=== PATIENT | female | born 1950 | race Caucasian/White ===

== ENCOUNTER → 2016-09-27 | Outpatient (CLI) | payer MEDICARE ==
[~2016-09-27] MED LIST: ACIPHEX20 MG PO; ANTIVERT25 MG PO; Aciphex20 MG PO; CALCIUM500 MG PO; COUMADIN5 M2 PO; EVISTA60 MG PO; IBU-8800 MG PO; JANUMET 500 MG-1 TA1 PO; LISINOPRIL20 MG PO; LOVENOX80 MG/0.8 SC; MACROBID100 M1 PO; PREDNICOT20 MG PO; PYRIDIUM200 MG PO; SIMVASTATIN20 MG PO; SYNTHROID0.1 MG PO; VALTREX1 GM PO; VALTREX500 MG PO; VICODIN 5/500 505 MG PO; ZYRTEC10 MG PO
== END | disposition home or self-care (01) ==
LOC: US 08:20
DX: K76.0 Fatty (change of) liver, not elsewhere classified (principal); R94.5 Abnormal results of liver function studies; N28.89 Other specified disorders of kidney and ureter

== ENCOUNTER → 2016-10-07 | Outpatient (CLI) | payer MEDICARE | END | disposition home or self-care (01) | LOC: CT 09:49 | DX: K76.0 Fatty (change of) liver, not elsewhere classified (principal); N28.89 Other specified disorders of kidney and ureter; R94.5 Abnormal results of liver function studies; Q89.09 Congenital malformations of spleen ==

== ENCOUNTER → 2016-12-11 | Outpatient (CLI) | payer MEDICARE | END | disposition home or self-care (01) | LOC: US 07:30 | DX: I12.9 Hypertensive chronic kidney disease with stage 1 through stage 4 chronic kidney disease, or unspecified chronic kidney disease (principal); E11.21 Type 2 diabetes mellitus with diabetic nephropathy; N18.2 Chronic kidney disease, stage 2 (mild); E78.5 Hyperlipidemia, unspecified; N28.0 Ischemia and infarction of kidney ==

== ENCOUNTER → 2016-12-13 | Outpatient (CLI) | payer MEDICARE ==
[2016-12-13 10:39] LABS: BASO # 0.1 10*3/uL (0.0-0.1); BASO % 1.2 % (0.0-1.0); EOS # 0.2 10*3/uL (0.0-0.4); EOS % 2.8 % (1.0-4.0); HEMATOCRIT 44.7 % (37.0-47.0); HEMOGLOBIN 14.5 g/dl (12.0-16.0); LYMPH # 2.5 10*3/uL (1.3-4.4); LYMPH % 29.1 % (27.0-41.0); MEAN CELL VOLUME 85.1 fl (81.0-99.0); MEAN CORPUSCULAR HGB 27.6 pg (27.0-31.0); MEAN CORPUSCULAR HGB CONC 32.4 g/dl (33.0-37.0); MEAN PLATELET VOLUME 9.9 fl (9.6-12.3); MONO # 0.7 10*3/uL (0.1-1.0); MONO % 7.8 % (3.0-9.0); NEUT % 58.9 % (47.0-73.0); PLATELET COUNT AUTOMATED 240 10*3/uL (130-400); RED BLOOD COUNT 5.25 10*6/uL (4.10-5.10); RED CELL DISTRI WIDTH 13.3 % (0-14.5); WHITE BLOOD COUNT 8.4 10*3/uL (4.8-10.8)
[2016-12-13 10:52] LABS: BILIRUBIN NEGATIVE (NEGATIVE); BLOOD 1+ (NEGATIVE); CLARITY CLOUDY (CLEAR); COLOR YELLOW (YELLOW); GLUCOSE NEGATIVE (NEGATIVE); KETONE NEGATIVE (NEGATIVE); LEUKO ESTERASE 3+ (NEGATIVE); NITRITE POSITIVE (NEGATIVE); PH 6.5 (5.0-9.0); PROTEIN TRACE (NEGATIVE)
[2016-12-13 11:00] LABS: BACTERIA 2+; WBC TNTC wbc/hpf (0-5)
[2016-12-13 11:01] LABS: URINE TP/CRE RATIO 0.2 (<0.21)
[2016-12-13 11:10] LABS: ALBUMIN 3.7 gm/dl (3.1-4.5); ALKALINE PHOSPHATASE 51 U/L (45-117); BILIRUBIN, TOTAL 0.5 mg/dl (0.2-1.0); BUN 12 mg/dl (7-24); CARBON DIOXIDE 27 mmol/L (21-32); CHLORIDE 103 mmol/L (98-107); CHOLESTEROL 132 mg/dL (<200); EST GLOM FILT AFRICAN AMERICAN > 60 ml/min; GLUCOSE 122 mg/dL (65-99); HDL CHOLESTEROL 42 mg/dl (40-60); LDL CHOLESTEROL 63 mg/dL (9-159); MAGNESIUM 1.8 mg/dL (1.5-2.1); POTASSIUM 4.2 mmol/L (3.5-5.1); SGOT/AST 24 IU/L (3-35); SGPT/ALT 42 U/L (12-78); SODIUM 139 mmol/L (136-145); TOTAL PROTEIN 7.4 gm/dL (6.4-8.2); TRIGLYCERIDES 133 mg/dl (<150); URIC ACID 5.6 mg/dL (2.6-6.0); VLDL CHOLESTEROL 27 mg/dL (6-40)
[2016-12-13 12:02] LABS: PTH INTACT 27.3 pg/mL (14.0-72.0); VITAMIN D, 25-HYDROXY 34.8 ng/mL (30-100)
[2016-12-14 09:06] LABS: MICRO ALBUMIN/CRE RATIO 24.7 (0.0-30.0)
== END | disposition home or self-care (01) ==
LOC: LAB 02:27
PROVIDERS: Internal Medicine Nephrology
DX: I12.9 Hypertensive chronic kidney disease with stage 1 through stage 4 chronic kidney disease, or unspecified chronic kidney disease (principal); N18.2 Chronic kidney disease, stage 2 (mild); E78.5 Hyperlipidemia, unspecified; E11.21 Type 2 diabetes mellitus with diabetic nephropathy; E11.22 Type 2 diabetes mellitus with diabetic chronic kidney disease; N28.0 Ischemia and infarction of kidney; E55.9 Vitamin D deficiency, unspecified; R00.2 Palpitations

== ENCOUNTER 2017-03-08 19:31 | Inpatient (IN) | payer MEDICARE ==
[~2017-03-08] VITALS: Ht 170.2 cm; Wt 90.4 kg
[~2017-03-08 19:31] MED LIST changes: +SYNTHROID,LEVO88 MCG PO; -SYNTHROID0.1 MG PO
[2017-03-08 19:32] VITALS: BP 76/40
[2017-03-08 19:46] VITALS: BP 105/68
[2017-03-08 19:50] VITALS: BP 125/74
[2017-03-08 19:51] LABS: BASO # 0.1 10*3/uL (0.0-0.1); BASO % 0.6 % (0.0-1.0); EOS # 0.2 10*3/uL (0.0-0.4); EOS % 1.6 % (1.0-4.0); HEMATOCRIT 45.1 % (37.0-47.0); HEMOGLOBIN 14.9 g/dl (12.0-16.0); LYMPH # 4.9 10*3/uL (1.3-4.4); LYMPH % 52.2 % (27.0-41.0); MEAN CELL VOLUME 83.2 fl (81.0-99.0); MEAN CORPUSCULAR HGB 27.5 pg (27.0-31.0); MEAN PLATELET VOLUME 10.1 fl (9.6-12.3); MONO # 0.8 10*3/uL (0.1-1.0); MONO % 8.5 % (3.0-9.0); NEUT # 3.5 10*3/uL (2.3-7.9); PLATELET COUNT AUTOMATED 275 10*3/uL (130-400); RED BLOOD COUNT 5.42 10*6/uL (4.10-5.10); RED CELL DISTRI WIDTH 13.2 % (0-14.5); WHITE BLOOD COUNT 9.5 10*3/uL (4.8-10.8)
[2017-03-08 20:03] LABS: BUN 14 mg/dl (7-24); CHLORIDE 105 mmol/L (98-107); CREATININE 0.91 mg/dL (0.55-1.02); POTASSIUM 3.7 mmol/L (3.5-5.1); SODIUM 139 mmol/L (136-145)
[2017-03-08 22:15] VITALS: BP 121/80
[2017-03-08 22:37] VITALS: BP 127/83
--- NOTE | 2017-03-08 22:37 | NUR ---
A 67, admitted to ICCU, under the services of KATIA Springer DO with a diagnosis of anaphylaxis. Chief complaint is anaphylactic reaction after starting Bactrim. Patient arrived via stretcher from ER. Monitor applied. Initial assessment completed. Vital signs taken and recorded. KATIA SPRINGER DO notified of admission to the unit. Orders received. See assessment for past medical history, medications and allergies. Patient and/or family oriented to unit. [facility] ICCU visitation policy reviewed. Clothing/patient valuable form completed. ALEXEY MALIK
[2017-03-08] MEDS ORDERED: ZESTORETIC 20-1 EACH PO (22:59)
--- NOTE | 2017-03-08 23:00 | NUR ---
DR ROMERO HERE DURING ADMISSION ASSESSMENT AND PERFORMS H&P AND ASSESSMENT. NO ORDERS FOR ABRASIONS SUSTAINED FROM FALL ORDERED AT THIS TIME.
[2017-03-08] MEDS ORDERED: OXYBUTYNIN CHLO10 MG PO (23:01)
[2017-03-08] MEDS ORDERED: COREG3.125 MG PO (23:01)
[2017-03-08] MEDS ORDERED: DIALYVITE V5000 UNIT PO (23:06)
[2017-03-08] MEDS ORDERED: ATORVASTATIN CA10 M1 PO (23:07)
[2017-03-08] MEDS ORDERED: ASPIRIN ADULT L81 M1 PO (23:08)
[2017-03-08] MEDS ORDERED: BIOTIN PO (23:13)
[2017-03-09] VITALS: BP 118/69
--- NOTE | 2017-03-09 00:12 | NUR ---
PATIENT C/O 12/09 HEADACHE. MEDICATED WITH PRN NORCO ORDERED AND PER PATIENT REQUEST.
[2017-03-09 01:02] LABS: BILIRUBIN NEGATIVE (NEGATIVE); BLOOD NEGATIVE (NEGATIVE); CLARITY CLEAR (CLEAR); COLOR YELLOW (YELLOW); GLUCOSE NEGATIVE (NEGATIVE); KETONE NEGATIVE (NEGATIVE); LEUKO ESTERASE TRACE (NEGATIVE); NITRITE NEGATIVE (NEGATIVE); SPECIFIC GRAVITY 1.015 (1.005-1.030); UROBILINOGEN 0.2 E.U./dl (0.2-1.0)
[2017-03-09 01:08] LABS: BACTERIA TRACE; WBC 16-20 wbc/hpf (0-5)
--- NOTE | 2017-03-09 01:10 | NUR ---
PATIENT ASLEEP. NO SIGNS OF PAIN. NORCO EFFECTIVE.
[2017-03-09 04:00] VITALS: BP 122/71
[2017-03-09 04:38] LABS: BASO % 0.3 % (0.0-1.0); HEMATOCRIT 43.4 % (37.0-47.0); HEMOGLOBIN 14.2 g/dl (12.0-16.0); LYMPH # 1.2 10*3/uL (1.3-4.4); LYMPH % 11.7 % (27.0-41.0); MEAN CELL VOLUME 83.8 fl (81.0-99.0); MEAN CORPUSCULAR HGB 27.4 pg (27.0-31.0); MEAN CORPUSCULAR HGB CONC 32.7 g/dl (33.0-37.0); MEAN PLATELET VOLUME 10.7 fl (9.6-12.3); MONO # 0.1 10*3/uL (0.1-1.0); MONO % 0.7 % (3.0-9.0); PLATELET COUNT AUTOMATED 242 10*3/uL (130-400); RED BLOOD COUNT 5.18 10*6/uL (4.10-5.10); RED CELL DISTRI WIDTH 13.2 % (0-14.5); WHITE BLOOD COUNT 10.4 10*3/uL (4.8-10.8)
[2017-03-09 04:50] LABS: ACT PARTIAL THROMBO TIME 22.3 SECONDS (20.8-31.5)
[2017-03-09 05:11] LABS: ALBUMIN 3.3 gm/dl (3.1-4.5); ALKALINE PHOSPHATASE 49 U/L (45-117); BUN 13 mg/dl (7-24); CHLORIDE 104 mmol/L (98-107); CHOLESTEROL 136 mg/dL (<200); CREATININE 0.91 mg/dL (0.55-1.02); MAGNESIUM 1.7 mg/dL (1.5-2.1); PHOSPHOROUS 2.5 mg/dL (2.5-4.9); POTASSIUM 3.9 mmol/L (3.5-5.1); SGOT/AST 24 IU/L (3-35); SGPT/ALT 43 U/L (12-78); SODIUM 138 mmol/L (136-145); TOTAL PROTEIN 6.9 gm/dL (6.4-8.2); TRIGLYCERIDES 40 mg/dl (<150); VLDL CHOLESTEROL 8 mg/dL (6-40)
[2017-03-09 05:17] LABS: HDL CHOLESTEROL 45 mg/dl (40-60); LDL CHOLESTEROL 83 mg/dL (9-159)
[2017-03-09 07:05] LABS: VITAMIN D, 25-HYDROXY 48.4 ng/mL (30-100)
--- NOTE | 2017-03-09 07:53 | NUR ---
Shift chart check completed.24 HR chart check completed.
[2017-03-09 08:00] VITALS: BP 120/70
--- NOTE | 2017-03-09 08:45 | NUR ---
ALEJANDRA WHITE [id number] Please refer to the physician's history and physical for past medical history, comorbid conditions, and allergies. Diagnosis: ANAPHYLAXIS Garfield Score: 22,LOW OR NO RISK WOUND DESCRIPTIONS: Location of the wound: left knee proximal Type of wound: traumatic Thickness: Partial Size: 2.4cm x 2.2cm x 0.1cm Tunneling: none Undermining: none Sinus Tract: none Presence of Exudate: serosanguineous Amount: Light Color: Red Odor: None Periwound Skin Appearance: Normal Wound edges: approximated Pain (associated with wound): none at time of assessment How does patient state this happened? pt stated she fell coming into the ER after her dropped her off she isn't sure if she blacked out or not. Location of the wound: left knee distal Type of wound: traumatic Thickness: Partial Size: 0.4cm x 1.2cm x 0.1cm Tunneling: none Undermining: none Sinus Tract: none Presence of Exudate: serosanguineous Amount: Light Color: Red Odor: None Periwound Skin Appearance: Normal Wound edges: approximated Pain (associated with wound): none at time of assessment How does patient state this happened? pt stated she fell coming into the ER after her dropped her off she isn't sure if she blacked out or not. Location of the wound: bridge of nose Type of wound: traumatic Thickness: Partial Size: 1.0cm x 0.7cm x 0.1cm patient has three small areas within this area Tunneling: none Undermining: none Sinus Tract: none Presence of Exudate: none Amount: None Color: Red Odor: None Periwound Skin Appearance: Normal Wound edges: closed Pain (associated with wound): none at time of assessment How does patient state this happened? pt stated she fell coming into the ER after her dropped her off she isn't sure if she blacked out or not. Location of the wound: chin Type of wound: traumatic Thickness: Partial Size: 1.5cm x 1.5cm x 0.1cm Tunneling: none Undermining: none Sinus Tract: none Presence of Exudate: none Amount: None Color: Red Odor: None Periwound Skin Appearance: Normal Wound edges: approximated Pain (associated with wound): none at time of assessment How does patient state this happened? pt stated she fell coming into the ER after her dropped her off she isn't sure if she blacked out or not. Surface the patient is resting on: Position Pro SKIN PREVENTION RECOMMENDATION: 1. Pressure redistribution support surface as appropriate 2. Elevate heels 3. Remove boots/TEDS every shift and reapply 4. Head of bed 30 degrees as tolerated 5. Assess nutrition and hydration 6. Manage moisture 7. Avoid the use of containment devices while in bed 8. Use absorptive products on surfaces limit layers of linens on bed 9. Turn and reposition every 1-2 hours in bed and every 1 hour in chair as tolerated 10. Weight shifts every 15 minutes while up in chair 11. Offloading with pillows or device to keep heels elevated off bed 12. Monitor skin at least every shift 13. Inspect under medical devices twice a day WOUND TREATMENT RECOMMENDATIONS: Leave area to chin and bridge of nose open to air. Skin tear guidelines to left knee nss, sureprep, versatel, optifoam gentle
--- NOTE | 2017-03-09 08:49 | NUR ---
ON ASSESSMENT PATIENT IS ALERT AND ORIENTED, HUNGRY. DR RICHARD HERE TO EVALUATE HER BEFORE ORDERING HER DIET. SHE SWALLOWED A NORCO FOR HEADACHE WITHOUT DIFFICULTY. ECCHYMOSIS OF BILATERAL INNER CANTHUS. IV FLUIDS CONTINUE. SEE ALL APPROPRIATE INTERVENTIONS.
--- NOTE | 2017-03-09 10:18 | NUR ---
IN TO VISIT. HE APPROACHED ME AND ASKED IF PT WAS GOING TO BE DISCHARGED BECAUSE ER TOLD HIM YESTERDAY THAT SHE WAS ONLY HERE FOR OBSERVATION OVERNIGHT AND "THAT'S WHY I CONSENTED FOR HER TO STAY HERE". HE HAS AGREED TO WAIT FOR ATTENDING PHYSICIAN (DR THOMSON) TO VISIT. ASSURED THAT HE MAY SIGN HER OUT AGAINST MEDICAL ADVICE IF THE DOCTORS DON'T DISCHARGE HER. PT UP IN CHAIR EATING HER BREAKFAST.
--- NOTE | 2017-03-09 10:42 | NUR ---
AMBULATED AROUND THE ENTIRE ICCU ON ROOM AIR. HR NEVER BREANNA ABOVE 97. POST ACTIVITY BP 123/69
[2017-03-09 10:49] VITALS: BP 123/69
--- NOTE | 2017-03-09 11:02 | NUR ---
EARLIER VICODIN HELPED.
--- NOTE | 2017-03-09 11:23 | NUR ---
DR THOMSON IN TO VISIT.
[2017-03-09] MEDS ORDERED: NORCO 5/325 PO (11:24)
[2017-03-09] MEDS ORDERED: HYDR25T PO (11:24)
--- NOTE | 2017-03-09 11:59 | NUR ---
DISCHARGE INSTRUCTIONS TO PATIENT. IV AND MONITOR REMOVED. PT DISCHARGED IN STABLE CONDITION VIA W/C TO CAR WITH HER . ALL BELONGINGS ACCOMPANIED PT.
== END 2017-03-09 11:59 | disposition home or self-care (01) | DRG 915 ==
LOC: ED 19:31 → ICCU 21:29 → EDHOLD 21:29 → ICCU 21:42
PROVIDERS: Emergency Medicine; Internal Medicine; ADMIT Internal Medicine
DX: T88.6XXA Anaphylactic reaction due to adverse effect of correct drug or medicament properly administered, initial encounter (principal); J96.00 Acute respiratory failure, unspecified whether with hypoxia or hypercapnia; N39.0 Urinary tract infection, site not specified; I95.2 Hypotension due to drugs; E11.65 Type 2 diabetes mellitus with hyperglycemia; S01.81XA Laceration without foreign body of other part of head, initial encounter; S02.2XXA Fracture of nasal bones, initial encounter for closed fracture; I10 Essential (primary) hypertension; E78.5 Hyperlipidemia, unspecified; E03.9 Hypothyroidism, unspecified; W18.30XA Fall on same level, unspecified, initial encounter; T37.0X5A Adverse effect of sulfonamides, initial encounter; Y93.89 Activity, other specified; Y92.89 Other specified places as the place of occurrence of the external cause; Y99.8 Other external cause status; Z90.49 Acquired absence of other specified parts of digestive tract; Z91.030 Bee allergy status; Z88.1 Allergy status to other antibiotic agents; Z88.2 Allergy status to sulfonamides

== ENCOUNTER → 2017-10-02 | Outpatient (CLI) | payer MEDICARE ==
[~2017-10-02] MED LIST changes: +ASPIRIN ADULT L81 M1 PO; +ATORVASTATIN CA10 M1 PO; +BIOTIN PO; +COREG3.125 MG PO; +DIALYVITE V5000 UNIT PO; +HYDR25T PO; +NORCO 5/325 PO; +OXYBUTYNIN CHLO10 MG PO; +ZESTORETIC 20-1 EACH PO
== END | disposition home or self-care (01) ==
LOC: MAMMO 00:11
DX: Z12.31 Encounter for screening mammogram for malignant neoplasm of breast (principal)

== ENCOUNTER → 2020-02-02 | Outpatient (CLI) | payer MEDICARE | END | disposition home or self-care (01) | LOC: MAMMO 01-15 03:51 | DX: Z12.31 Encounter for screening mammogram for malignant neoplasm of breast (principal) ==